=== PATIENT | female | born 1985 | race Caucasian/White ===

== ENCOUNTER 2018-03-10 19:35 | Emergency (ER) | payer OTHER ==
[2018-03-10 19:41] VITALS: BP 135/88
[2018-03-10] MEDS ORDERED: BUFFERED LIDOCAINE 10 ML SYRINGE SUBQ ONE (19:49)
--- NOTE | 2018-03-10 19:50 | ED Physician Documentation ---
PD HPI UPPER EXT INJURY - Stated complaint Stated Complaint: R PINKY PX - Chief complaint Chief Complaint: Ext Problem - History obtained from History obtained from: Patient - History of Present Illness Location: Right (She had acrylic nails done yesterday. She was playing with her son and her right pinky nail got caught on the carpet and almost completely ripped off and now is just hanging by a thread.) Review of Systems Cardiac: reports: Reviewed and negative Respiratory: reports: Reviewed and negative PD PAST MEDICAL HISTORY - Present Medications Home Medications: Ambulatory Orders Medication Instructions Recorded Confirmed Duloxetine HCl [Cymbalta] 100 mg PO BID 03/10/18 03/10/18 Norgestrel-Ethinyl Estradiol 1 tab PO DAILY 03/10/18 03/10/18 [[id number] Tablet] - Allergies Allergies/Adverse Reactions: Allergies Allergy/AdvReac Type Severity Reaction Status Date / Time Sulfa (Sulfonamide Allergy Anaphylaxis Verified 03/10/18 19:41 Antibiotics) capsaicin AdvReac Unknown Verified 03/10/18 19:41 PD ED PE NORMAL - Vitals Vital signs reviewed: Yes - General General: Alert and oriented X 3, No acute distress - Extremities Extremities: Other (Right pinky nail is almost completely avulsed and just attached to the proximal nail bed. There is no bony tenderness of the finger and good range of motion.) - Neuro Neuro: Alert and oriented X 3, Normal speech Results - Vitals Vitals: Vital Signs - 24 hr 03/10/18 19:36 Temperature 36.6 C Heart Rate 118 H Respiratory 16 Rate Blood Pressure 135/88 H O2 Saturation 97 Oxygen O2 Source Room air Procedures - General procedure General procedure: After a digital block with buffered lidocaine and excellent anesthesia of the entirety of the right fifth nail was removed using blunt dissection and dressed. PD MEDICAL DECISION MAKING - Sepsis Event Vital Signs: Vital Signs - 24 hr 03/10/18 19:36 Temperature 36.6 C Heart Rate 118 H Respiratory 16 Rate Blood Pressure 135/88 H O2 Saturation 97 Oxygen O2 Source Room air Departure - Departure Disposition: 01 Home, Self Care Clinical Impression: Fingernail avulsion, partial Qualifiers: Encounter type: initial encounter Qualified Code(s): S61.309A - Unspecified open wound of unspecified finger with damage to nail, initial encounter Condition: Good Record reviewed to determine appropriate education?: Yes Instructions: ED Removal Nail
== END 2018-03-10 20:32 | disposition home or self-care (01) ==
LOC: ED 19:35
DX: S61.306A Unspecified open wound of right little finger with damage to nail, initial encounter (principal); W23.0XXA Caught, crushed, jammed, or pinched between moving objects, initial encounter; Y92.009 Unspecified place in unspecified non-institutional (private) residence as the place of occurrence of the external cause
CPT/HCPCS: 11730; 99282; 99283

== ENCOUNTER 2018-10-18 13:59 | Emergency (ER) | payer OTHER ==
[2018-10-18 14:05] VITALS: BP 130/73
--- NOTE | 2018-10-18 15:03 | XRAY Report ---
Reason: kicked door, 3rd digit bruised/swollen 4/5th pain Procedure Date: 10/18/2018 Accession Number: [id number] / [id number] Procedure: XR - Toe(s) LT CPT Code: FULL RESULT: EXAM: LEFT TOE RADIOGRAPHY EXAM DATE: 10/18/2018 02:26 PM. CLINICAL HISTORY: Kicked door, 3rd digit bruised/swollen 4/5th pain. COMPARISON: None. TECHNIQUE: 3 views with attention to the third toe and also the fourth and fifth toes. FINDINGS: Bones: Lucency at the dorsomedial margin of the base of the fourth toe distal phalanx on the oblique view may be projectional but a nondisplaced fracture is not excluded. No other evidence of fracture or bone lesion. 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 No subluxations. Soft Tissues: Normal. No soft tissue swelling. IMPRESSION: 1. Possible nondisplaced fracture through the dorsal medial margin of the base of the fourth toe distal phalanx. 2. No other acute abnormality demonstrated. RADIA
--- NOTE | 2018-10-18 15:52 | ED Physician Documentation ---
PD HPI LOWER EXT INJURY - Stated complaint Stated Complaint: TOE INJ - Chief complaint Chief Complaint: Ext Problem - History obtained from History obtained from: Patient - History of Present Illness PD HPI LOW EXT INJURY LOCATION: Left, Toe (middle) Type of injury: Blunt / blow Where injury occurred: Home Timing - onset: Enter time (1129), Today Timing - duration: Hours Timing - details: Abrupt onset, Still present Improved by: Rest, Immobilization Worsened by: Moving, Palpating Associated symptoms: Swelling, Discolored. No: Weakness, Numbness Contributing factors: No: Anticoagulated Similar symptoms before: Diagnosis (broken toe) Recently seen: Clinic - Additional information Additional information: 32-year-old female kicked a door jam very hard with her toe accidentally and she has pain and swelling to the left middle toe. She is able to bear weight and walk with a limp. Review of Systems Constitutional: denies: Fever Eyes: denies: Decreased vision Ears: denies: Ear pain Nose: denies: Congestion Throat: denies: Sore throat Respiratory: denies: Cough GI: denies: Vomiting PD PAST MEDICAL HISTORY - Past Surgical History Past Surgical History: Yes Ortho: Other - Present Medications Home Medications: Ambulatory Orders Medication Instructions Recorded Confirmed Norgestrel-Ethinyl Estradiol 1 tab PO DAILY 03/10/18 03/10/18 [[id number]-[id number] Tablet] Methocarbamol [Robaxin] 750 mg PO DAILY PM 10/18/18 10/18/18 Multivitamin [Multiple Vitamins] 10/18/18 - Allergies Allergies/Adverse Reactions: Allergies Allergy/AdvReac Type Severity Reaction Status Date / Time Sulfa (Sulfonamide Allergy Anaphylaxis Verified 10/18/18 15:20 Antibiotics) capsaicin AdvReac Unknown Verified 10/18/18 14:05 - Social History Does the pt smoke?: No Smoking Status: Never smoker Does the pt drink ETOH?: Yes Does the pt have substance abuse?: No - Immunizations Immunizations are current?: Yes - POLST Patient has POLST: No PD ED PE NORMAL - Vitals Vital signs reviewed: Yes (normal ) - General General: Alert and oriented X 3, No acute distress, Well developed/nourished - HEENT HEENT: Atraumatic, PERRL, EOMI - Respiratory Respiratory: No respiratory distress - Derm Derm: Normal color, Warm and dry, No rash - Extremities Extremities: No deformity, Other (There is swelling and tenderness to the dorsum of the left middle toe. Distal n/v is intact. There is pain to palpation of the fourth toe as well dorsally over the DIP joint. ) - Neuro Neuro: Alert and oriented X 3, software implementation project manager 2-12 intact, No motor deficit, No sensory deficit, Normal speech Eye Opening: Spontaneous Motor: Obeys Commands Verbal: Oriented GCS Score: 15 - Psych Psych: Normal mood, Normal affect Results - Vitals Vitals: Vital Signs - 24 hr 10/18/18 14:03 Temperature 36.1 C L Heart Rate 95 Respiratory 18 Rate Blood Pressure 130/73 O2 Saturation 97 Oxygen O2 Source Room air - Rads (name of study) foot Radiology: Prelim report reviewed (Impression: 1. Possible nondisplaced fracture through the dorsal medial margin of the base of the fourth toe distal phalanx. No other acute abnormality demonstrated.), EMP read indepedently, See rad report PD MEDICAL DECISION MAKING - ED course Complexity details: reviewed results, re-evaluated patient, considered differential, d/w patient ED course: 32-year-old female with contusion to the left middle toe does not have evidence of fracture on x-ray examination. Departure - Departure Disposition: 01 Home, Self Care Clinical Impression: Contusion of toe of left foot Qualifiers: Encounter type: initial encounter Toe: lesser toe Damage to nail status: without damage Qualified Code(s): S90.122A - Contusion of left lesser toe(s) without damage to nail, initial encounter Condition: Stable Instructions: ED Contusion Lower Ext, ED Fx Toe Closed Follow-Up: VIPUL FLOREZ DO [Primary Care Provider] -
== END 2018-10-18 16:18 | disposition home or self-care (01) ==
LOC: ED 13:59
DX: S90.122A Contusion of left lesser toe(s) without damage to nail, initial encounter (principal); W22.09XA Striking against other stationary object, initial encounter; Y92.009 Unspecified place in unspecified non-institutional (private) residence as the place of occurrence of the external cause
CPT/HCPCS: 73660; 99282

== ENCOUNTER 2019-03-15 07:55 | Emergency (ER) | payer OTHER ==
[2019-03-15 08:37] VITALS: BP 137/79
[2019-03-15] MEDS ORDERED: LIDOCAINE PATCH 5% TOP STA (09:14)
--- NOTE | 2019-03-15 09:14 | ED Physician Documentation ---
PD HPI BACK PAIN - Stated complaint Stated Complaint: Back pain - Chief complaint Chief Complaint: Back Pain - History obtained from History obtained from: Patient - History of Present Illness Timing - onset: How many weeks ago (2) Timing - duration: Weeks (2) Timing - details: Still present, Constant Severity Comments: moderate Location: Upper, Left (back pain) Quality: Pain, Similar to prior episodes Associated symptoms: No: Fever, Weakness, Numbness Improves with: Rest Worsened by: Movement, Lifting, Palpation Contributing factors: Other (patient is moving things from her home and has been doing a lot of lifting) Similar symptoms before: Diagnosis (hx of back surgery, chronic back pain and fibromyalgia) Recently seen: Not recently seen - Treatment prior to arrival Treatment prior to arrival: ibuprofen Review of Systems Ten Systems: 10 systems reviewed and negative Constitutional: reports: Fever (several days ago). denies: Chills, Myalgias, Fatigue Cardiac: reports: Reviewed and negative. denies: Chest pain / pressure, Palpitations, Pedal edema, Calf pain Respiratory: reports: Reviewed and negative. denies: Dyspnea, Cough, Hemoptysis, Wheezing GI: denies: Abdominal Pain, Nausea, Vomiting Musculoskeletal: reports: Neck pain, Back pain, Extremity pain. denies: Joint pain, Extremity swelling, Joint swelling Neurologic: denies: Generalized weakness, Focal weakness, Numbness Immunocompromised: reports: Reviewed and negative PD PAST MEDICAL HISTORY - Past Surgical History Past Surgical History: Yes Ortho: Other - Present Medications Home Medications: Ambulatory Orders Medication Instructions Recorded Confirmed Norgestrel-Ethinyl Estradiol 1 tab PO DAILY 03/10/18 03/10/18 [Aof-[id number] Tablet] Methocarbamol [Robaxin] 750 mg PO DAILY PM 10/18/18 10/18/18 Multivitamin [Multiple Vitamins] 10/18/18 Lidocaine Patch 5% [Lidoderm Patch] 1 patch TOP DAILY PRN #10 patch 03/15/19 diazePAM [Valium] 5 - 10 mg PO TID PRN #15 tablet 03/15/19 - Allergies Allergies/Adverse Reactions: Allergies Allergy/AdvReac Type Severity Reaction Status Date / Time Sulfa (Sulfonamide Allergy Anaphylaxis Verified 03/15/19 08:38 Antibiotics) capsaicin AdvReac Unknown Verified 03/15/19 08:38 - Social History Does the pt smoke?: No Smoking Status: Never smoker Does the pt drink ETOH?: Yes Does the pt have substance abuse?: No - Immunizations Immunizations are current?: Yes - POLST Patient has POLST: No PD ED PE NORMAL - Vitals Vital signs reviewed: Yes - General General: Alert and oriented X 3, No acute distress, Well developed/nourished - HEENT HEENT: Atraumatic, Pharynx benign - Neck Neck: Supple, no meningeal sign, No JVD - Cardiac Cardiac: RRR, No murmur, No gallop, No rub - Respiratory Respiratory: No respiratory distress, Clear bilaterally - Abdomen Abdomen: Soft, Non distended - Female Female : Deferred - Rectal Rectal: Deferred - Back Back: No CVA TTP, No spinal TTP - Derm Derm: Normal color, Warm and dry, No rash - Extremities Extremities: No deformity, No tenderness to palpate, No edema, Other (pain with lifting her L arm over her head, but full ROM ) - Neuro Neuro: Alert and oriented X 3, No motor deficit, No sensory deficit Eye Opening: Spontaneous Motor: Obeys Commands Verbal: Oriented GCS Score: 15 - Psych Psych: Normal mood, Normal affect PD ED PE EXPANDED - Back Back: Soft tissue tenderness (left thoracic paraspinal and rhomboid tenderness). No: Vertebral tenderness, Limited ROM Results - Vitals Vitals: Vital Signs - 24 hr 03/15/19 03/15/19 08:34 09:13 Temperature 37.1 C Heart Rate 93 Respiratory 96 H 15 Rate Blood Pressure 137/79 H O2 Saturation 99 Oxygen O2 Source Room air PD MEDICAL DECISION MAKING - ED course Complexity details: reviewed old records, considered differential, d/w patient ED course: ddx- chronic pain, fibromyalgia pain, muscle strain, vertebral fx or injury, spinal epidural abscess or diskitis, radiculopathy, disk herniation Pt well appearing, afebrile, no midline spinal tenderness to suggest SPE or diskitis. Pt's pain increased with lifting arm over her head and is tender over paraspinals and rhomboid thus highly suspect muscle strain. Will give trial of lidoderm patches, prn valium for spasm and outpt f/u. Departure - Departure Disposition: 01 Home, Self Care Clinical Impression: Strain of thoracic paraspinal muscles excluding T1 and T2 levels Qualifiers: Encounter type: initial encounter Qualified Code(s): S29.012A - Strain of muscle and tendon of back wall of thorax, initial encounter Condition: Stable Record reviewed to determine appropriate education?: Yes Instructions: ED Sprain Thoracic Spine Follow-Up: VIPUL FLOREZ DO [Primary Care Provider] - As Needed Prescriptions: diazePAM [Valium] 5 - 10 mg PO TID PRN #15 tablet PRN Reason: Spasms Lidocaine Patch 5% [Lidoderm Patch] 1 patch TOP DAILY PRN #10 patch PRN Reason: pain Comments: Your examination and history are most consistent with a muscle strain of your upper back. Continue ibuprofen 600-800mg three times a day and you can try the prescribed lidoderm patches daily for pain as well as valium for spasm. Try local massage and warm compresses or heat packs to help with muscle relaxation.
== END 2019-03-15 09:24 | disposition home or self-care (01) ==
LOC: ED 07:55
DX: S29.012A Strain of muscle and tendon of back wall of thorax, initial encounter (principal); M54.2 Cervicalgia; X50.0XXA Overexertion from strenuous movement or load, initial encounter; Y93.E6 Activity, residential relocation; Y92.009 Unspecified place in unspecified non-institutional (private) residence as the place of occurrence of the external cause
CPT/HCPCS: 99283; 99284; A9270

== ENCOUNTER 2020-05-10 22:20 | Emergency (ER) | payer OTHER ==
[2020-05-10 22:26] VITALS: BP 143/65
[2020-05-10] MEDS ORDERED: CEPHALEXIN 250 MG Prepack 8 CAP BOTTLE PO STA (22:39)
[2020-05-10] MEDS ORDERED: CHERRY SYRUP 10 ML UDC PO ONE (22:39)
[2020-05-10] MEDS ORDERED: DEXAMETHASONE 10 MG/ML VIAL PO STA (22:39)
--- NOTE | 2020-05-10 22:42 | ED Physician Documentation ---
PD HPI SKIN - Stated complaint Stated Complaint: RT COTTO WOUND - Chief complaint Chief Complaint: Wound - History obtained from History obtained from: Patient - History of Present Illness Timing - onset: Yesterday Timing - duration: Days (1) Timing - details: Gradual onset, Still present Location: LLE Quality / character: Itchy, Burning, Crusted, Swelling, Draining Associated symptoms: Myalgias. No: Fever, Joint pain, Headache, Facial swelling, Dyspnea, Abd pain, N/V/D, Urinary sx Contributing factors: Other (new tatoo) Similar symptoms before: Has not had sx before Recently seen: Other (had tatoo done one week ago.) - Additional information Additional information: 32-year-old female has had a tattoo on her right calf done 1 week ago and she is now developed some reaction to certain color on there that show some redness and crusting with eschar forming over it and some superficial surrounding erythema on one portion. She has had a number of tattoos previously is never had a reaction like this. She denies any visual symptoms denies any fever associated with this. She has had coronavirus back in July of this year. She does not believe she has been really exposed. Review of Systems Constitutional: reports: Myalgias. denies: Fever Eyes: denies: Decreased vision Ears: denies: Ear pain Nose: denies: Congestion Throat: denies: Sore throat Cardiac: denies: Chest pain / pressure Respiratory: denies: Dyspnea, Cough GI: denies: Abdominal Pain, Nausea, Vomiting, Diarrhea Skin: reports: Rash Musculoskeletal: reports: Extremity pain Neurologic: denies: Generalized weakness, Focal weakness, Numbness PD PAST MEDICAL HISTORY - Past Medical History Musculoskeletal: Fibromyalgia, Chronic back pain - Past Surgical History Past Surgical History: Yes Ortho: Other - Present Medications Home Medications: Ambulatory Orders Medication Instructions Recorded Confirmed Norgestrel-Ethinyl Estradiol 1 tab PO DAILY 03/10/18 03/10/18 [Rtz-Qycglakn-68 Tablet] Multivitamin [Multiple Vitamins] 10/18/18 Cephalexin [Keflex] 500 mg PO Q6H #28 capsule 05/10/20 Cetirizine HCl [Zyrtec] 05/10/20 - Allergies Allergies/Adverse Reactions: Allergies Allergy/AdvReac Type Severity Reaction Status Date / Time Sulfa (Sulfonamide Allergy Anaphylaxis Verified 03/15/19 08:38 Antibiotics) capsaicin AdvReac Unknown Verified 03/15/19 08:38 - Social History Does the pt smoke?: No Smoking Status: Never smoker Does the pt drink ETOH?: Yes Does the pt have substance abuse?: No - Immunizations Immunizations are current?: Yes - POLST Patient has POLST: No PD ED PE NORMAL - Vitals Vital signs reviewed: Yes (Hypertensive) - General General: Alert and oriented X 3, No acute distress, Well developed/nourished - HEENT HEENT: Atraumatic, PERRL, EOMI - Respiratory Respiratory: No respiratory distress - Derm Derm: Normal color, Warm and dry, Other (There is a tattoo of a hummingbird and a flower on the right lateral calf and there is an area of the tattoo with a certain color where that color appears to have caused a reaction to the skin where there is eschar formation and one port portion there is some drainage as well some superficial surrou) - Extremities Extremities: No deformity, No edema, Other (as above reaction to tatoo with superficial infection in one area) - Neuro Neuro: Alert and oriented X 3, paper coater 2-12 intact, No motor deficit, No sensory deficit, Normal speech Eye Opening: Spontaneous Motor: Obeys Commands Verbal: Oriented GCS Score: 15 - Psych Psych: Normal mood, Normal affect Results - Vitals Vitals: Vital Signs - 24 hr 05/10/20 22:23 Temperature 36.3 C L Heart Rate 85 Respiratory 18 Rate Blood Pressure 143/65 H O2 Saturation 98 Oxygen O2 Source Room air PD MEDICAL DECISION MAKING - ED course Complexity details: reviewed old records, re-evaluated patient, considered differential ED course: 32-year-old female presents to the emergency department with what appears to be a superficial reaction to a tattoo dye. In addition there is one area that looks like after the reaction she has some slight infection. She is administered a dose of dexamethasone 10 mg here in the emergency department and she is given Keflex. We will place her on a short course and expect complete resolution. Departure - Departure Disposition: 01 Home, Self Care Clinical Impression: Foreign body reaction to tattoo dyes Condition: Stable Instructions: ED Staph Infec Abx Tx Only, ED Dermatitis Contact Follow-Up: VIPUL FLOREZ DO [Primary Care Provider] - Prescriptions: Cephalexin [Keflex] 500 mg PO Q6H #28 capsule
== END 2020-05-10 23:19 | disposition home or self-care (01) ==
LOC: ED 22:20
DX: L08.9 Local infection of the skin and subcutaneous tissue, unspecified (principal); L81.8 Other specified disorders of pigmentation; T78.49XA Other allergy, initial encounter; X58.XXXA Exposure to other specified factors, initial encounter
CPT/HCPCS: 99282; 99284; A9270

== ENCOUNTER 2021-01-23 16:57 | Emergency (ER) | payer OTHER ==
[2021-01-23] MEDS ORDERED: KETOROLAC 60 MG/2 ML VIAL IM STA (20:22)
[2021-01-23] MEDS ORDERED: DEXAMETHASONE 10 MG/ML VIAL PO STA (20:22)
[2021-01-23] MEDS ORDERED: CHERRY SYRUP 10 ML UDC PO ONE (20:22)
[2021-01-23 20:36] LABS: BASOPHILS % (AUTO) 0.3 %; EOSINOPHILS # (AUTO) 0.1 10^3/uL (0.0-0.7); EOSINOPHILS % (AUTO) 1.1 %; HCT - HEMATOCRIT 43.6 % (37.0-47.0); HGB - HEMOGLOBIN 14.8 g/dL (12.0-16.0); LYMPHOCYTES # (AUTO) 2.5 10^3/uL (1.5-3.5); LYMPHOCYTES % (AUTO) 38.8 %; MEAN CORPUSCULAR HEMOGLOBIN 32.2 pg (27.0-31.0); MEAN CORPUSCULAR HGB CONC 33.9 g/dL (32.0-36.0); MEAN PLATELET VOLUME 10.3 fL (7.9-10.8); MONOCYTES # (AUTO) 0.5 10^3/uL (0.0-1.0); MONOCYTES % (AUTO) 7.1 %; NEUTROPHILS # (AUTO) 3.3 10^3/uL (1.5-6.6); NEUTROPHILS % (AUTO) 52.4 %; PLT - PLATELET COUNT 226 10^3/uL (130-450); RED BLOOD COUNT 4.59 10^6/uL (4.20-5.40); RED CELL DISTRIBUTION WIDTH 12.7 % (12.0-15.0); WHITE BLOOD COUNT 6.3 x10^3/uL (4.8-10.8)
[2021-01-23 20:53] LABS: ALBUMIN 4.5 g/dL (3.2-5.5); ALBUMIN/GLOBULIN RATIO 1.6 (1.0-2.2); ALKALINE PHOSPHATASE 56 IU/L (42-121); ALT ALANINE AMINOTRANSFERASE 22 IU/L (10-60); AST ASPARTATE AMINOTRANSFERASE 19 IU/L (10-42); BILIRUBIN,TOTAL 0.7 mg/dL (0.2-1.0); BUN - BLOOD UREA NITROGEN 17 mg/dL (6-20); CALCIUM 9.9 mg/dL (8.5-10.3); CARBON DIOXIDE - CO2 25 mmol/L (21-32); CHLORIDE 107 mmol/L (101-111); GFR - MDRD 64 (>89); GLUCOSE 90 mg/dL (70-100); LIPASE 48 U/L (22-51); POTASSIUM 3.9 mmol/L (3.5-5.0); SODIUM 142 mmol/L (135-145); TOTAL PROTEIN 7.4 g/dL (6.7-8.2)
--- NOTE | 2021-01-23 21:31 | CT Report ---
PROCEDURE: LUMBAR SPINE WO INDICATIONS: L2 pain -specifically TECHNIQUE: Noncontrast 3 mm thick sections acquired from the T12 level to the sacrum. Sagittal and coronal refo rmats were constructed. For radiation dose reduction, the following was used: automated exposure co ntrol, adjustment of mA and/or kV according to patient size. COMPARISON: None. FINDINGS: Image quality: Excellent. Bones: Postsurgical changes compatible with L5-S1 TLIF. Orthopedic hardware is intact. No lucencies identified at the bone-hardware interface. There is normal bony alignment. No acute vertebral body c ompression fractures. No suspicious lytic or blastic bony lesions. Central spinal caliber is of nor mal overall caliber. No pars defects. T12-L1: Normal in appearance. L1-L2: Normal in appearance. L2-L3: Normal in appearance. L3-L4: Normal in appearance. L4-L5: Normal in appearance. L5-S1: Status post fusion. No osseous erosive changes identified adjacent to the L5-S1 disc space. Soft tissues: No retroperitoneal masses or hematomas. Visualized aorta is normal in caliber. IMPRESSION: 1. Status post L5-S1 TLIF 2. No osseous erosive changes. 3. No paraspinous edema or fluid collections. 4. No vertebral body compression fracture. Reviewed by: Misty Daigle MD, PhD on 01/23/2021 9:29 PM PDT Approved by: Misty Daigle MD, PhD on 01/23/2021 9:29 PM PDT Station ID: [id number]
[2021-01-23 21:32] LABS: CRP - C-REACTIVE PROTEIN < 1.0 mg/dL (0-1.0)
--- NOTE | 2021-01-23 21:35 | ED Physician Documentation ---
PD HPI BACK PAIN - Stated complaint Stated Complaint: NECK/BACK PX - Chief complaint Chief Complaint: Back Pain - History obtained from History obtained from: Patient - History of Present Illness Timing - onset: Today Timing - duration: Hours Timing - details: Abrupt onset, Still present Location: Lower Quality: Pain, Sharp Associated symptoms: No: Fever, Weakness, Numbness, Incontinent of urine, Unable to urinate, Hematuria, Incontinent of stool Improves with: Rest, Position, Meds Worsened by: Movement, Lifting, Twisting Contributing factors: Other (no specific trigger for the start of this.) Similar symptoms before: Has not had sx before Recently seen: Not recently seen - Additional information Additional information: 35-year-old female has had multiple surgeries to her back was sitting today when she developed acute pain in the lower back that is very specific to one area. She has some radiation of the pain upper back and down her spine.She denies any incontinence she denies any difficulty with her bowel or numbness to the perineum.She denies intravenous drug use. Review of Systems Constitutional: denies: Fever Eyes: denies: Decreased vision Ears: denies: Ear pain Nose: denies: Congestion Throat: denies: Sore throat Cardiac: denies: Chest pain / pressure Respiratory: denies: Dyspnea, Cough GI: denies: Abdominal Pain, Nausea, Vomiting, Constipation, Diarrhea : denies: Dysuria, Frequency PD PAST MEDICAL HISTORY - Past Medical History Past Medical History: Yes Musculoskeletal: Fibromyalgia, Chronic back pain - Past Surgical History Past Surgical History: Yes Ortho: Spine surgery, Other - Present Medications Home Medications: Ambulatory Orders Medication Instructions Recorded Confirmed norgestrel-ethinyl estradioL 1 tab PO DAILY 03/10/18 01/23/21 [[id number] Tablet] Multivitamin [Multiple Vitamins] 1 tab ORAL DAILY 10/18/18 01/23/21 Cetirizine HCl [Zyrtec] 10 mg ORAL DAILY 05/10/20 01/23/21 Cyclobenzaprine [Flexeril] 10 mg PO TID PRN #20 tablet 01/23/21 Oxycodone HCl/Acetaminophen 1 - 2 each PO Q6H PRN #14 tablet 01/23/21 [Percocet 5-325 mg Tablet] - Allergies Allergies/Adverse Reactions: Allergies Allergy/AdvReac Type Severity Reaction Status Date / Time Sulfa (Sulfonamide Allergy Anaphylaxis Verified 01/23/21 17:13 Antibiotics) capsaicin AdvReac Unknown Verified 01/23/21 17:13 - Social History Does the pt smoke?: No Smoking Status: Never smoker Does the pt drink ETOH?: Yes Does the pt have substance abuse?: No - Immunizations Immunizations are current?: Yes - POLST Patient has POLST: No PD ED PE NORMAL - Vitals Vital signs reviewed: Yes (Tachycardic) - General General: Alert and oriented X 3, No acute distress, Well developed/nourished - HEENT HEENT: Atraumatic, PERRL, EOMI - Neck Neck: Supple, no meningeal sign, No bony TTP - Cardiac Cardiac: RRR, No murmur - Respiratory Respiratory: No respiratory distress, Clear bilaterally - Abdomen Abdomen: Normal bowel sounds, Soft, Non tender, Non distended, No organomegaly - Back Back: No CVA TTP, Other (There is specific point tenderness over the L3 area.) - Derm Derm: Normal color, Warm and dry, No rash - Extremities Extremities: No deformity, No edema - Neuro Neuro: Alert and oriented X 3, mobile manager 2-12 intact, No motor deficit, No sensory deficit, Normal speech Eye Opening: Spontaneous Motor: Obeys Commands Verbal: Oriented GCS Score: 15 - Psych Psych: Normal mood, Normal affect Results - Vitals Vitals: Vital Signs - 24 hr 01/23/21 01/23/21 01/23/21 17:14 20:09 20:22 Temperature 37 C 37 C Heart Rate 107 H 71 78 Respiratory 18 17 18 Rate Blood Pressure 129/66 131/79 H 100/73 O2 Saturation 98 100 96 01/23/21 22:00 Temperature Heart Rate 77 Respiratory 16 Rate Blood Pressure 128/77 O2 Saturation 100 Oxygen O2 Source Room air - Labs Labs: Laboratory Tests 01/23/21 01/23/21 01/23/21 20:28 20:28 20:28 WBC 6.3 RBC 4.59 Hgb 14.8 Hct 43.6 MCV 95.0 MCH 32.2 H MCHC 33.9 RDW 12.7 Plt Count 226 MPV 10.3 Neut # (Auto) 3.3 Lymph # (Auto) 2.5 Delta # (Auto) 0.5 Eos # (Auto) 0.1 Baso # (Auto) 0.0 Absolute Nucleated RBC 0.00 Nucleated RBC % 0.0 ESR 1 Sodium 142 Potassium 3.9 Chloride 107 Carbon Dioxide 25 Anion Gap 10.0 BUN 17 Creatinine 1.0 Estimated GFR (MDRD) 64 L Glucose 90 Calcium 9.9 Total Bilirubin 0.7 AST 19 ALT 22 Alkaline Phosphatase 56 C-Reactive Protein < 1.0 Total Protein 7.4 Albumin 4.5 Globulin 2.9 Albumin/Globulin Ratio 1.6 Lipase 48 - Rads (name of study) CT lumbar spine Radiology: Prelim report reviewed (Impression: 1. S/p L5-S1 TLIF 2. no osseous erosive changes. 3. No paraspinous edema or fluid collections. 4. No vertebral body compression fracture.), EMP read indepedently, See rad report PD MEDICAL DECISION MAKING - ED course Complexity details: reviewed old records, reviewed results, re-evaluated patient, considered differential, d/w patient ED course: 35-year-old female with centrally located lumbar pain has acute onset of pain well localized with radiation. I had some concern for discitis with the presentation we're not able to obtain MRI tonight. We did obtain CT of the lumbar spine which was an unremarkable study. The patient does have hardware in her back. We obtained blood work which was reassuringly normal with normal sedimentation rate CRP white blood cell count and electrolytes. Patient is treated in the emergency department with dexamethasone and Toradol. We will provide her with some Percocet and Flexeril for pain control and I have discussed with the patient the possibility of discitis and recommended that she obtain MRI if she has worsening of her pain or development of new symptoms associated with the pain. Departure - Departure Disposition: 01 Home, Self Care Clinical Impression: Lumbar arthropathy Condition: Stable Instructions: ED Low Back Pain Injury Follow-Up: VIPUL FLOREZ DO [Primary Care Provider] - Prescriptions: Cyclobenzaprine [Flexeril] 10 mg PO TID PRN #20 tablet PRN Reason: Spasms Oxycodone HCl/Acetaminophen [Percocet 5-325 mg Tablet] 1 - 2 each PO Q6H PRN #14 tablet PRN Reason: pain Discharge Date/Time: 01/23/21 22:22
[2021-01-23] MEDS ORDERED: oxyCODONE/ACET 5/325 Prepack 4 PO STA (21:57)
[2021-01-23] MEDS ORDERED: CYCLOBENZAPRINE 10 MG Prepack 2 PO PRN (21:57)
[2021-01-23 22:13] VITALS: BP 128/77
== END 2021-01-23 22:22 | disposition home or self-care (01) ==
LOC: ED 16:57
DX: M47.816 Spondylosis without myelopathy or radiculopathy, lumbar region (principal)
CPT/HCPCS: 36415; 72131; 80053; 83690; 85025; 85651; 86140; 96372; 99284; A9270

== ENCOUNTER 2021-01-24 10:23 | Emergency (ER) | payer OTHER ==
[2021-01-24] MEDS ORDERED: DEXAMETHASONE 10 MG/ML VIAL PO STA (10:54)
[2021-01-24] MEDS ORDERED: ACETAMINOPHEN 500 MG TABLET PO STA (10:54)
[2021-01-24] MEDS ORDERED: CHERRY SYRUP 10 ML UDC PO ONE (10:54)
[2021-01-24] MEDS ORDERED: GADOBUTROL 15 MMOL/15 ML VIAL ONE (12:17)
--- NOTE | 2021-01-24 13:37 | MRI Report ---
PROCEDURE: Lumbar Spine W/WO INDICATIONS: Abrupt onset lumbar pain 2 days ago CONTRAST: Gadavist ml: 8.7 TECHNIQUE: Noncontrast sagittal T1 spin echo and T2 fast spin echo, sagittal STIR, axial T1 and T2 fast spin ech o through the lumbar spine. In cases with scoliosis, additional coronal T2 fast spin echo may be per formed. After the administration of contrast, sagittal and axial T1 spin echo with fat saturation th rough the lumbar spine. COMPARISON: 01/23/2021 CT FINDINGS: There are postsurgical changes of L5-S1 posterior fixation by means of bilateral rods and pedicle scr ews. There is no abnormal signal or edema surround hardware. Postcontrast images demonstrate no abnor mal enhancement adjacent to the hardware. There is susceptibility artifact related to the hardware wh ich limits evaluation. Normal vertebral body height, alignment, signal intensity otherwise. There is no suspicious focal mar row signal abnormality or significant marrow edema. Normal position and appearance of the conus. Prev ertebral and paraspinous soft tissues demonstrate no significant abnormality. T12-L1: A focal disc protrusion and left paracentral and subarticular zones flattens and displaces th e conus, in addition to displacing the descending left L1 nerve roots (best seen on series 901 image 41). No neural foraminal stenosis. L1-L2: No spinal canal or neural foraminal stenosis. No significant degenerative changes. Normal h eight and hydration of the intervertebral disc. L2-L3: No spinal canal or neural foraminal stenosis. No significant degenerative changes. Normal h eight and hydration of the intervertebral disc. L3-L4: No spinal canal or neural foraminal stenosis. Normal height and hydration of the interverteb ral discs. Mild facet arthropathy changes. L4-L5: Diffuse disc bulge flattens the ventral thecal sac. No mass effect on the traversing L5 nerv e roots. No neural foraminal stenosis. Mild facet arthropathy changes. L5-S1: Left hemilaminotomy changes and posterior fixation of L5-S1. The spinal canal is decompressed. There is subtle enhancement posterior to the left S1 nerve root within the left subarticular zone wh ich may represent epidural fibrosis (series 1101 image 6). Residual versus recurrent disc material mi ldly displaces the descending S1 nerve roots within both subarticular zones. This is slightly more pr onounced on the left (for example on series 901 image 6). Disc height loss produces neural foraminal collapse which combines with foraminal components of the disc bulge and some posterior osteophytic ri dging of the inferior L5 endplate to produce mild bilateral neural foraminal narrowing. IMPRESSION: Post-surgical changes of L5 and S1 posterior fixation with no acute complicating feature. Subtle enhancement posterior to the descending left S1 nerve root within the left subarticular zone a t the L5-S1 level, potentially representing epidural fibrosis. Small volume of residual versus recurrent disc material in the ventral epidural space mildly displace s the descending S1 nerve roots within both subarticular zones, left greater than right. Focal disc protrusion at T12-L1 producing flattening and displacement of the conus in addition to dis placement of the descending left S1 nerve roots. Correlate for any corresponding radicular symptoms. Reviewed by: Harley Alcantar MD on 01/24/2021 1:35 PM PDT Approved by: Harley Alcantar MD on 01/24/2021 1:35 PM PDT Station ID: [id number]
--- NOTE | 2021-01-24 14:00 | ED Physician Documentation ---
PD HPI BACK PAIN - Stated complaint Stated Complaint: FOLLOW UP/BACK PX - Chief complaint Chief Complaint: Back Pain - History obtained from History obtained from: Patient - History of Present Illness Timing - onset: How many weeks ago (1) Timing - duration: Weeks Timing - details: Abrupt onset (she states she just bent over easily and felt onset lumbar back pain, and has had pain low back and aching anterior thighs. No numbness nor weakness.) Location: Lower Quality: Pain, Sharp. No: Tearing, Aching Associated symptoms: Other (pain anterior thighs, mostly left.). No: Fever, Weakness, Numbness, Incontinent of urine Improves with: No: Rest, Meds (Ibuprofen and Tylenol) Worsened by: Movement, Twisting Contributing factors: Twisting (just bent over). No: Trauma Similar symptoms before: Diagnosis (had lower lumbar problems in the past, with L4/5 microdiscectomy.) Recently seen: Clinic (seen at [facility] and Rx Flexeril and Ibuprofen, had normal xr ay. Seen in ED last evening with CT done and labs, with concern for discitis. No fever, nl WBC and inflammatory markers. Told to return to ER today for consideration of MRI.) Review of Systems Constitutional: denies: Fever, Chills Nose: denies: Rhinorrhea / runny nose, Congestion Throat: denies: Sore throat Respiratory: denies: Cough : denies: Incontinent Skin: denies: Rash, Lesions Musculoskeletal: reports: Other (pain in anterior thighs at times without pain on movement/flexion of legs.) Neurologic: denies: Focal weakness, Numbness PD PAST MEDICAL HISTORY - Past Medical History Cardiovascular: None Respiratory: None Neuro: None Endocrine/Autoimmune: None Musculoskeletal: Fibromyalgia, Chronic back pain (prior back surgery and had been doing okay without ongoing back pains. Now recent pain episode onset. ) - Past Surgical History Past Surgical History: Yes Ortho: Spine surgery, Other - Present Medications Home Medications: Ambulatory Orders Medication Instructions Recorded Confirmed norgestrel-ethinyl estradioL 1 tab PO DAILY 03/10/18 01/23/21 [[id number] Tablet] Multivitamin [Multiple Vitamins] 1 tab ORAL DAILY 10/18/18 01/23/21 Cetirizine HCl [Zyrtec] 10 mg ORAL DAILY 12/09/20 08/24/21 Cyclobenzaprine [Flexeril] 10 mg PO TID PRN #20 tablet 01/23/21 Oxycodone HCl/Acetaminophen 1 - 2 each PO Q6H PRN #14 tablet 01/23/21 [Percocet 5-325 mg Tablet] Acetaminophen [Acetaminophen Extra 500 mg PO QID #40 tablet 01/24/21 Strength] dexAMETHasone [Decadron] 4 mg PO DAILY #7 tablet 01/24/21 methocarbamoL [Robaxin] 500 mg PO Q6H PRN #30 tablet 01/24/21 - Allergies Allergies/Adverse Reactions: Allergies Allergy/AdvReac Type Severity Reaction Status Date / Time Sulfa (Sulfonamide Allergy Anaphylaxis Verified 01/23/21 17:13 Antibiotics) capsaicin AdvReac Anaphylaxis Verified 01/24/21 10:31 - Social History Does the pt smoke?: No Smoking Status: Never smoker Does the pt drink ETOH?: Yes Does the pt have substance abuse?: No - Immunizations Immunizations are current?: Yes - POLST Patient has POLST: No PD ED PE NORMAL - Vitals Vital signs reviewed: Yes - General General: Alert and oriented X 3, Well developed/nourished - Cardiac Cardiac: RRR, No murmur - Respiratory Respiratory: Clear bilaterally - Abdomen Abdomen: Soft, Non tender, Non distended - Back Back: No CVA TTP, Other (tender in upper lumbar area muscles more to left side. ) - Derm Derm: Normal color, Warm and dry - Neuro Neuro: Alert and oriented X 3, No motor deficit, No sensory deficit, Normal speech Results - Vitals Vitals: Vital Signs - 24 hr 01/24/21 01/24/21 10:31 14:00 Temperature 36.9 C 37.0 C Heart Rate 106 H 78 Respiratory 18 17 Rate Blood Pressure 144/80 H 129/70 O2 Saturation 97 99 Oxygen O2 Source Room air - Rads (name of study) lumbar MRI Radiology: Prelim report reviewed (L1 disc protrusion with impingement/displacing the L1 nerve root; no change in neural foramen. ), See rad report PD MEDICAL DECISION MAKING - ED course Complexity details: reviewed results (her back pain with radiation to anterior thighs, corresponds to L1 nerve impingement (that would be area for L1 dermatome).), considered differential, d/w patient ED course: had had prior back surgery in [place]. Moved here recently. No back specialist here. Can refer to [facility] back. She may need to get referral from PCP as well. To check with her insurance. Departure - Departure Disposition: 01 Home, Self Care Clinical Impression: Lumbosacral radiculopathy at L1 Low back pain Qualifiers: Chronicity: acute Back pain laterality: unspecified Sciatica presence: unspecified whether sciatica present Qualified Code(s): M54.5 - Low back pain Condition: Stable Record reviewed to determine appropriate education?: Yes Instructions: ED Sciatica Follow-Up: VIPUL FLOREZ DO [Primary Care Provider] - [facility] [Provider Group] Prescriptions: Acetaminophen [Acetaminophen Extra Strength] 500 mg PO QID #40 tablet dexAMETHasone [Decadron] 4 mg PO DAILY #7 tablet methocarbamoL [Robaxin] 500 mg PO Q6H PRN #30 tablet PRN Reason: Spasms Comments: Your MRI shows a disc protrusion at the L1 level. This can cause the pain in the back that you have been experiencing in the radiation of the nerve pattern would be to the upper anterior thigh. I would suggest using Decadron steroid anti-inflammatory daily for the next week. Methocarbamol (Robaxin) muscle relaxant 3-4 times a day if needed for spasms and stiffness. Tylenol 500 mg 4 times a day if needed for pain. Consider taking it regularly for the next week or so for pain. Substitute the Percocet/APAP instead if needed for worse pain. Physical modalities such as massage, chiropractic, physical therapy are good for this as well. Follow-up with the back specialist. I gave you a phone number for [facility]. They do have back specialist within that group. You will have to contact them to see if they will take your referral from the ER or whether it needs to come from your primary care. Activity as tolerated. Discharge Date/Time: 01/24/21 14:12
[2021-01-24 14:12] VITALS: BP 129/70
[2021-01-24] MEDS ORDERED: GADOBUTROL 15 MMOL/15 ML VIAL IVP ONE (17:04)
== END 2021-01-24 14:12 | disposition home or self-care (01) ==
LOC: ED 10:23
DX: M54.16 Radiculopathy, lumbar region (principal)
CPT/HCPCS: 72158; 99282; 99284; A9270; A9585